=== PATIENT | female | born 1950 | race Caucasian/White ===

== ENCOUNTER → 2019-12-20 09:00 | Outpatient (BNVA) | payer MEDICARE, BC, SELFPAY | PROVIDERS: Family Provider Family Medicine; PCP Family Medicine; Visit Provider Nurse Practitioner Family | DX: R10.811 Right upper quadrant abdominal tenderness (principal); R07.89 Other chest pain; R06.02 Shortness of breath; I10 Essential (primary) hypertension; R42 Dizziness and giddiness | CPT/HCPCS: 80053; 82150; 83690; 85025 ==

== ENCOUNTER 2020-03-15 06:00 | Outpatient (RCR) | payer MEDICARE, BC, SELFPAY | END 2020-03-20 23:59 | disposition home or self-care (01) | LOC: GPT 06:00 | PROVIDERS: PCP Family Medicine; Referring Provider Orthopaedic Surgery; Visit Provider Orthopaedic Surgery | DX: M54.32 Sciatica, left side (principal) | CPT/HCPCS: 97032; 97110; 97161; 97530; G0283 ==

== ENCOUNTER 2020-03-21 06:00 | Outpatient (RCR) | payer MEDICARE, BC, SELFPAY | END 2020-04-19 23:59 | disposition home or self-care (01) | LOC: GPT 06:00 | PROVIDERS: PCP Family Medicine; Referring Provider Orthopaedic Surgery; Visit Provider Orthopaedic Surgery | DX: M54.32 Sciatica, left side (principal) | CPT/HCPCS: 97110; 97112; 97140; 97164; 97530; G0283 ==

== ENCOUNTER 2020-04-20 06:00 | Outpatient (RCR) | payer MEDICARE, BC, SELFPAY | END 2020-05-20 23:59 | disposition home or self-care (01) | LOC: GPT 06:00 | PROVIDERS: PCP Nurse Practitioner Family; Referring Provider Orthopaedic Surgery; Visit Provider Orthopaedic Surgery | DX: M54.32 Sciatica, left side (principal) | CPT/HCPCS: 97110; 97112; 97140 ==

== ENCOUNTER 2020-05-21 06:00 | Outpatient (RCR) | payer MEDICARE, BC, SELFPAY | END 2020-06-19 23:59 | disposition home or self-care (01) | LOC: GPT 06:00 | PROVIDERS: PCP Nurse Practitioner Family; Referring Provider Orthopaedic Surgery; Visit Provider Orthopaedic Surgery | DX: M54.32 Sciatica, left side (principal) | CPT/HCPCS: 97110; 97112; 97140; 97164; 97530 ==

== ENCOUNTER → 2020-08-21 10:16 | Outpatient (BNVA) | payer MEDICARE, SELFPAY | PROVIDERS: PCP Nurse Practitioner Family; Visit Provider Nurse Practitioner Family | DX: E78.5 Hyperlipidemia, unspecified (principal); I10 Essential (primary) hypertension; R53.83 Other fatigue; E55.9 Vitamin D deficiency, unspecified; J32.9 Chronic sinusitis, unspecified; B96.89 Other specified bacterial agents as the cause of diseases classified elsewhere; R51.9 Headache, unspecified; L65.9 Nonscarring hair loss, unspecified | CPT/HCPCS: 80053; 80061; 82306; 82652; 84439; 84443; 85025 ==

== ENCOUNTER → 2021-04-04 00:01 | Outpatient (BNVA) | payer MEDICARE, SELFPAY | PROVIDERS: PCP Nurse Practitioner Family; Visit Provider Nurse Practitioner Family | DX: R50.9 Fever, unspecified (principal); R52 Pain, unspecified | CPT/HCPCS: 87635 ==

== ENCOUNTER 2021-04-09 11:21 | Outpatient (CLI) | payer MEDICARE, SELFPAY ==
[2021-04-09 12:15] VITALS: BP 140/81; PULSE 77; RESP 18; TEMP 36.9; O2SAT 98
[2021-04-09 12:25] VITALS: PULSE 76; RESP 18; TEMP 36.9; O2SAT 98; BMI 46.2
[2021-04-09 12:55] VITALS: BP 145/90; PULSE 72; RESP 18; O2SAT 98
[2021-04-09 13:55] VITALS: BP 160/85; PULSE 76; RESP 18; TEMP 36.9; O2SAT 98
--- NOTE | 2021-04-09 15:49 | PC.NURSE ---
Pt was hypertensive. bp 180/78, taken multiple times. BP got up to 190s. We suggested pt go to the ER. Pt decided to go up to the ER on her own. Pt dc up to ER with bp 180s/80s. Jason BENDER
== END 2021-04-09 11:22 | disposition home or self-care (01) ==
LOC: OPS 11:37
PROVIDERS: PCP Nurse Practitioner Family; Visit Provider Nurse Practitioner Family
DX: U07.1 COVID-19 (principal)
CPT/HCPCS: 96365

== ENCOUNTER → 2021-11-23 14:00 | Outpatient (BNVA) | payer MEDICARE, SELFPAY | PROVIDERS: PCP Nurse Practitioner Family; Visit Provider Nurse Practitioner Family | DX: I10 Essential (primary) hypertension (principal); E55.9 Vitamin D deficiency, unspecified; J06.9 Acute upper respiratory infection, unspecified | CPT/HCPCS: 80053; 80061; 82306; 84443; 85025 ==

== ENCOUNTER 2023-05-28 08:58 | Outpatient (CLI) | payer MEDICARE, SELFPAY ==
--- NOTE | 2023-05-28 09:00 | MM_ITS ---
WS: [id number] Bilateral screening 3D tomosynthesis digital mammogram, 05/29/2023 Clinical Data: Z12.31 - Encounter for screening mammogram for malignant ... Comparison: 09/03/2021, 08/03/2020, 08/13/2018, 08/04/2014. Findings: The breast parenchymal pattern shows fat replacement. No spiculated masses or clustered calcification s are seen. There are no secondary signs of carcinoma. There are mole markers on both breasts. Impression: 1. Negative bilateral mammogram unchanged. 2. Recommend annual screening mammograms. MM/[place] [id number] BIRADS: 1-Negative FOLLOW UP: 1 Year Follow-up The CAD thread checker was used.
== END 2023-05-28 08:59 | disposition home or self-care (01) ==
LOC: MOBLMAM 09:04
PROVIDERS: PCP Nurse Practitioner Family; Visit Provider Nurse Practitioner Family
DX: Z12.31 Encounter for screening mammogram for malignant neoplasm of breast (principal)
CPT/HCPCS: 77063; 77067

== ENCOUNTER → 2023-07-22 15:56 | Outpatient (BNVA) | payer MEDICARE, SELFPAY | PROVIDERS: PCP Nurse Practitioner Family; Visit Provider Nurse Practitioner Family | DX: H10.33 Unspecified acute conjunctivitis, bilateral (principal); J06.9 Acute upper respiratory infection, unspecified; R05.9 Cough, unspecified | CPT/HCPCS: 87426 ==

== ENCOUNTER 2024-06-09 11:23 | Outpatient (CLI) | payer MEDICARE, SELFPAY ==
--- NOTE | 2024-06-09 11:20 | MM_ITS ---
WS: [id number] SCREENING DIGITAL BREAST TOMOSYNTHESIS MAMMOGRAM WITH CAD HISTORY: SCREENING COMPARISON: 05/28/2023, 09/03/2021, 08/03/2020 Bilateral CC and MLO with tomosynthesis and synthetic mammography submitted. Computer aided detection analyzed. Breast composition: The breasts are almost entirely fatty. Increasing linear calcifications and focal asymmetric soft tissue in the lateral LEFT breast near 3:00 at a middle depth. These changes have pr ogressed since 05/28/2023 and are new since 09/03/2021. No additional suspicious abnormalities. MM/MM [facility] tomosynthesis [id number] IMPRESSION: BI-RADS: 0 - Incomplete: Need additional imaging evaluation. FOLLOW UP: Need Additional Imaging LEFT breast: Spot compression views (CC and MLO). True ML. Ultrasound to follow if abnormality persists.
== END 2024-06-09 11:24 | disposition home or self-care (01) ==
LOC: MOBLMAM 11:24
PROVIDERS: PCP Nurse Practitioner Family; Visit Provider Nurse Practitioner Family
DX: Z12.31 Encounter for screening mammogram for malignant neoplasm of breast (principal); R92.313 Mammographic fatty tissue density, bilateral breasts; N63.23 Unspecified lump in the left breast, lower outer quadrant
CPT/HCPCS: 77063; 77067